=== PATIENT | male | born 1935 | race Caucasian/White ===

== ENCOUNTER 2020-02-12 09:43 | Outpatient (CLI) | payer MEDICARE, SELFPAY ==
--- NOTE | 2020-02-12 09:48 | ECG_ITS ---
Measurements Intervals [place] Rate: 64 P: 60 IN: 222 QRS: 68 QRSD: 92 T: 57 QT: 368 QTc: 382 Interpretive Statements SINUS RHYTHM WITH FIRST DEGREE AV BLOCK ABNORMAL ECG Electronically Signed On 02-12-2020 11:38:02 CDT by Toby Newell D.O.
== END 2020-02-12 09:44 | disposition home or self-care (01) ==
PROVIDERS: PCP Internal Medicine Cardiovascular Disease; Visit Provider Urology
DX: E78.00 Pure hypercholesterolemia, unspecified (principal); I44.0 Atrioventricular block, first degree
CPT/HCPCS: 93005

== ENCOUNTER 2020-02-17 01:23 | Outpatient (CLI) | payer MEDICARE, SELFPAY ==
[2020-02-17 19:35] LABS: SARS-CoV-2 RNA PCR Negative
== END 2020-02-17 01:24 | disposition home or self-care (01) ==
LOC: ANHCOVIDDT 01:23
PROVIDERS: Visit Provider Urology
DX: Z01.812 Encounter for preprocedural laboratory examination (principal); Z11.59 Encounter for screening for other viral diseases
CPT/HCPCS: 87635; C9803; U0003

== ENCOUNTER 2020-02-19 01:41 | Day surgery (SDC) | payer MEDICARE, SELFPAY ==
[2020-02-11 16:06] VITALS: BMI 22.1
--- NOTE | 2020-02-18 09:40 | P.PNAN_ITS ---
Anes - Initial Pre Proc Eval Procedure: Operation Date: 02/19/20 09:30 Proposed Procedures p Cystoscopy, Urethral Dilatation - Agustin Marquez MD Date/Time: 02/18/20 09:40 Surgeon: Agustin Marquez MD Pre Op Diagnosis: Urinary Retention Patient Data Age: 84 Gender: M Height: 1.88 m Weight: 78.05 kg Allergies Allergy/AdvReac Type Severity Reaction Status Date / Time No Known Allergies Allergy Verified 02/11/20 15:49 Home Medications Medication Instructions Recorded Confirmed Type atorvastatin 40 mg PO HS 02/11/20 02/11/20 History calcium carbonate-vitamin D3 1 cap PO BID 02/11/20 02/11/20 History [Calcium 600 with Vitamin D3] calcium polycarbophil [FiberCon] 1,250 mg PO HS 02/11/20 02/11/20 History cholecalciferol (vitamin D3) 25 mcg PO BID 02/11/20 02/11/20 History clopidogrel 75 mg PO DAILY 02/11/20 02/11/20 History glucos sul [id number] 1 cap PO QPM 02/11/20 02/11/20 History [Glucosamine Chondroitin] levothyroxine 100 mcg PO DAILY 02/11/20 02/11/20 History Patient hx anesthesia problems: none Family hx anesthesia problems: none [facility] Past Medical History Medical History (Updated 02/18/20 @ 09:40 by Matt Zhou DO) CAD (coronary artery disease) Hyperlipidemia Hypothyroidism TIA (transient ischemic attack) 08/2019 Surgical History Surgical History (Updated 02/18/20 @ 09:40 by Matt Zhou DO) History of appendectomy History of coronary artery stent placement x1, 2009 History of umbilical hernia repair Social History Social History Smoking status: Never smoker Alcohol intake: current Alcohol use details: 3 DRINKS PER MONTH BEER Living arrangements: alone Spiritual care concerns: No Anes - Eval Final PreProcedure Day of Procedure 02/18/20 09:40 Patient weight: normal Heart: regular rate and rhythm Lungs: clear to auscultation and normal air movement Airway: Mallampati scale class II Neurological: alert and oriented Last oral intake: >/= 8 hours ASA classification: III Emergent: no Anesthetic plan: proceed Anesthesia type and monitoring: general GIVS and standard monitoring Informed Consent: The patient's anesthetic plan and its attendant risks and benefits were discussed with the patient/family/POA. Questions were solicited and answers provided to the satisfaction of the patient/family/POA.
[2020-02-19 07:48] VITALS: BP 127/67; PULSE 62; RESP 20; TEMP 36.2; O2SAT 100
[2020-02-19] MEDS: LACTATED RINGERS 1,000 ML 30 ML IV CONT (08:35)
--- NOTE | 2020-02-19 09:32 | WPDHPUPDATE1 ---
History and Physical Update Update Date/Time: 02/19/20 09:32 History and Physical has been reviewed, including an updated exam of the patient. There are NO changes in the patient's condition. Risks, benefits, and alternatives have been discussed and questions answered. Patient agrees to proceed with procedure.
[2020-02-19] MEDS: ceFAZolin 2 GM/D5W 50 ML 2 GM/50 ML BAG IVPB (09:41)
--- NOTE | 2020-02-19 09:45 | PM.PROC ---
Procedure Note - Detailed Date of procedure: 02/19/20 Pre-op diagnosis: Urinary Retention Post-op diagnosis: other (Bladder neck contracture / bladder stones) Procedure performed: 1. Cystoscopy with urethral dilatation 2. Extraction of bladder stones Description of procedure: Patient is brought to the operative suite where he has prepped and draped in routine sterile fashion while in a dorsal lithotomy position. 2% xylocaine jelly was introduced intraurethrally and systemic sedation is administered per the anesthesia department. Cystoscopy is undertaken with 16 F flexible cystoscope. He has a tightly constricting bladder neck contracture which is dilated from 16-28 F with Geoffrey sounds. His 1 moderate, 2-3 cm, bladder stone was extracted with a grasping forceps. Multiple smaller stones or evacuated with an CUPR evacuator. Scopes were removed and a 18 F urethral catheter was placed to drainage. Urinary efflux was clear at the termination. Anesthesia: GLMA Surgeon: Agustin Marquez MD Estimated blood loss (mL): 0 Drains: Yes (18F Mancuso) Packing: No Pathology: yes Complications: No immediate complications Condition: stable Disposition: PACU
[2020-02-19] MEDS: LIDOCAINE HCL 2% GEL UROJET 10 ML PKG MUCOUS MEM (09:59)
[2020-02-19 10:16] VITALS: BP 118/67; PULSE 53; RESP 14; O2SAT 97
[2020-02-19 10:45] VITALS: BP 127/68; PULSE 52
[2020-02-19 11:15] VITALS: BP 143/67; PULSE 50
[2020-02-19 11:45] VITALS: BP 121/68; PULSE 49
[2020-02-19 12:15] VITALS: BP 132/68; PULSE 56; RESP 18
--- NOTE | 2020-02-19 13:52 | SUR.PHASEII ---
1200; PT AWAKE AND ALERT. DENIES PAIN OR NAUSEA. URINE IN STEWART CLEAR PRABHAKAR. WAITING FOR DR SAUNDERS. 1215; DR SAUNDERS AT BEDSIDE SPEAKING TO PT. INSTRUCTED TO GIVE PT A 10CC SYRINGE TO REMOVE STEWART TOMORROW. 1230; CHANGED TO LEG BAG. PT STATES HE HAS HAD CATHETERS BEFORE AND IS COMFORTABLE REMOVING IT AND USING A LEG BAG. PT STATES HE DOES NOT WANT THE LARGE COLLECTION BAG TO TAKE HOME. MEETS DISCHARGE CRITERIA.
== END 2020-02-19 12:50 | disposition home or self-care (01) ==
PROVIDERS: PCP Internal Medicine Cardiovascular Disease; Visit Provider Urology
PROC: 0T7D8ZZ Dilation of Urethra, Via Natural or Artificial Opening Endoscopic (ICD-10-PCS; CPT 52281; principal; 2020-02-19 09:30)
DX: N32.0 Bladder-neck obstruction (principal); N21.0 Calculus in bladder; I25.10 Atherosclerotic heart disease of native coronary artery without angina pectoris; E78.5 Hyperlipidemia, unspecified; E03.9 Hypothyroidism, unspecified; Z86.73 Personal history of transient ischemic attack (TIA), and cerebral infarction without residual deficits; Z79.02 Long term (current) use of antithrombotics/antiplatelets; Z95.5 Presence of coronary angioplasty implant and graft
CPT/HCPCS: 52310; 82365; 88300; A9270; J0690; J2001; J2704; J3010; J7120

== ENCOUNTER 2020-03-23 02:09 | Outpatient (CLI) | payer MEDICARE, SELFPAY ==
[2020-03-23 17:02] LABS: SARS-CoV-2 RNA PCR Negative
== END 2020-03-23 02:10 | disposition home or self-care (01) ==
LOC: ANHCOVIDDT 02:10
PROVIDERS: Visit Provider Urology
DX: Z01.812 Encounter for preprocedural laboratory examination (principal); Z11.59 Encounter for screening for other viral diseases
CPT/HCPCS: 87635; C9803; U0003

== ENCOUNTER 2020-03-25 00:27 | Day surgery (SDC) | payer MEDICARE, SELFPAY ==
[2020-03-23 12:09] VITALS: BMI 22.1
[2020-03-25] VITALS (8 sets, daily range): BP systolic 115–141; BP diastolic 69–78; PULSE 51–73; RESP 8–18; TEMP 36.7–36.8; O2SAT 98–100
--- NOTE | 2020-03-25 07:11 | WPDHPUPDATE1 ---
History and Physical Update Update Date/Time: 03/25/20 07:11 History and Physical has been reviewed, including an updated exam of the patient. There are NO changes in the patient's condition. Risks, benefits, and alternatives have been discussed and questions answered. Patient agrees to proceed with procedure.
--- NOTE | 2020-03-25 07:55 | WPDANESEPPF ---
Anes - Initial Pre Proc Eval Procedure: Operation Date: 03/25/20 09:30 Proposed Procedures p Optical Internal Urethrotomy - Agustin Marquez MD Date/Time: 03/25/20 07:55 Surgeon: Agustin Marquez MD Pre Op Diagnosis: Urinary Retention Patient Data Age: 84 Gender: M Height: 6 ft 2 in Weight: 78.05 kg Allergies Allergy/AdvReac Type Severity Reaction Status Date / Time No Known Allergies Allergy Verified 03/23/20 11:44 Home Medications Medication Instructions Recorded Confirmed Type Glucosamine Chondroitin 1 cap PO QPM 02/11/20 03/23/20 History atorvastatin 40 mg PO HS 02/11/20 03/23/20 History calcium carbonate-vitamin D3 1 cap PO BID 02/11/20 03/23/20 History [Calcium 600 with Vitamin D3] calcium polycarbophil [FiberCon] 1,250 mg PO HS 02/11/20 03/23/20 History cholecalciferol (vitamin D3) 25 mcg PO BID 02/11/20 03/23/20 History clopidogrel 75 mg PO DAILY 02/11/20 03/23/20 History levothyroxine 100 mcg PO DAILY 02/11/20 03/23/20 History besifloxacin [Besivance] 1 drp RIGHTEYE TID 03/23/20 03/23/20 History carboxymethylcellulose-glycern 1 drp OPHTHALMIC (EYE) TID 03/23/20 03/23/20 History [Refresh Relieva] tamsulosin 0.4 mg PO HS 03/23/20 03/23/20 History Patient hx anesthesia problems: none Family hx anesthesia problems: none PMF[facility] Past Medical History Medical History CAD (coronary artery disease) Hyperlipidemia Hypothyroidism TIA (transient ischemic attack) 08/2019 Surgical History Surgical History History of appendectomy History of coronary artery stent placement [id number] History of umbilical hernia repair Social History Social History Smoking status: Never smoker Alcohol intake: current Alcohol use details: 3 DRINKS PER MONTH BEER Living arrangements: alone Spiritual care concerns: No Anes - Eval Final PreProcedure Day of Procedure 03/25/20 07:55 Patient weight: normal Heart: regular rate and rhythm Lungs: clear to auscultation Airway: Mallampati scale class II Neurological: alert and oriented Last oral intake: >/= 8 hours ASA classification: III Emergent: no Anesthetic plan: proceed Anesthesia type and monitoring: general LMA and standard monitoring Informed Consent: The patient's anesthetic plan and its attendant risks and benefits were discussed with the patient/family/POA. Questions were solicited and answers provided to the satisfaction of the patient/family/POA.
[2020-03-25] MEDS: LACTATED RINGERS 1,000 ML 30 ML IV CONT (08:06)
[2020-03-25] MEDS: ceFAZolin 2 GM/D5W 50 ML 2 GM/50 ML BAG IVPB (08:55)
[2020-03-25] MEDS: LIDOCAINE HCL 2% GEL UROJET 10 ML PKG MUCOUS MEM (09:04)
--- NOTE | 2020-03-25 09:16 | PM.PROC ---
Procedure Note - Detailed Date of procedure: 03/25/20 Pre-op diagnosis: Bladder neck constracture / urethral stricture Post-op diagnosis: same Procedure performed: Optical internal urethrotomy Description of procedure: The patient was brought to the operative suite where he was prepped and draped in a routine sterile fashion while in a dorsal lithotomy position after the uneventful administration of systemic sedation by the anesthesia department. 2% Lidocaine was placed in the urethra and allowed to stand for an appropriate period of time. Cystoscopy was undertaken with a 19F rigid cystoscope. He has a moderately constricting stricture of the mid penile urethra and bladder neck]. The bladder itself was endoscopically normal without foreign body or neoplasm. The bladder mucosa was without hyperemia. There was a single orthotopic ureteral orifice bilaterally with clear reflex of urine. Using the optical urethratome, I incised the strictured urethra and bladder neck at the 12 o'clock position care taken to avoid injury to the membranous urethra. An 18F Mancuso catheter was placed, the bladder was emptied and the patient was taken to the recovery room in good condition. Anesthesia: MAC Surgeon: Agustin Marquez MD Estimated blood loss (mL): 0 Drains: Yes (18F Mancuso catheter) Packing: No Pathology: none sent Complications: No immediate complications Condition: stable Disposition: PACU
--- NOTE | 2020-03-25 10:38 | SUR.PHASEII ---
pt awake and alert. states he is ready to go home
--- NOTE | 2020-03-25 11:18 | SUR.PHASEII ---
1110; PT AWAKE AND ALERT. DRESSED. WAITING FOR RIDE. STATES READY TO GO HOME. MEETS DISCHARGE CRITERIA.
== END 2020-03-25 11:26 | disposition home or self-care (01) ==
PROVIDERS: PCP Internal Medicine Cardiovascular Disease; Visit Provider Urology
PROC: (CPT 52276; principal; 2020-03-25 09:30)
DX: N32.0 Bladder-neck obstruction (principal); N35.911 Unspecified urethral stricture, male, meatal; I25.10 Atherosclerotic heart disease of native coronary artery without angina pectoris; E78.5 Hyperlipidemia, unspecified; E03.9 Hypothyroidism, unspecified; Z86.73 Personal history of transient ischemic attack (TIA), and cerebral infarction without residual deficits; Z79.02 Long term (current) use of antithrombotics/antiplatelets; Z95.5 Presence of coronary angioplasty implant and graft
CPT/HCPCS: 52276; A9270; J0690; J1100; J2405; J2704; J3010; J7120

== ENCOUNTER 2021-05-05 02:51 | Day surgery (SDC) | payer MEDICARE, SELFPAY ==
[2021-05-04 15:39] VITALS: BMI 20.1
[2021-05-05] VITALS (7 sets, daily range): BP systolic 102–123; BP diastolic 68–72; PULSE 51–68; RESP 10–16; TEMP 36.4–36.9; O2SAT 97–100
--- NOTE | 2021-05-05 06:41 | WPDHPUPDATE1 ---
History and Physical Update Update Date/Time: 05/05/21 06:41 History and Physical has been reviewed, including an updated exam of the patient. There are NO changes in the patient's condition. Risks, benefits, and alternatives have been discussed and questions answered. Patient agrees to proceed with procedure.
--- NOTE | 2021-05-05 08:05 | P.PNAN_ITS ---
Anes - Initial Pre Proc Eval Procedure: Operation Date: 05/05/21 10:30 Proposed Procedures p Cystoscopy with Urethral Dilatation - Agustin Marquez MD Date/Time: 05/05/21 08:05 Surgeon: Agustin Marquez MD Pre Op Diagnosis: gross hematuria Patient Data Age: 85 Gender: M Height: 1.88 m Weight: 71.25 kg Allergies Allergy/AdvReac Type Severity Reaction Status Date / Time No Known Allergies Allergy Verified 05/04/21 15:13 Home Medications Medication Instructions Recorded Confirmed Type Glucosamine Chondroitin 1 cap PO QPM 02/11/20 05/04/21 History atorvastatin 40 mg PO HS 02/11/20 05/04/21 History calcium carbonate-vitamin D3 1 cap PO BID 02/11/20 05/04/21 History [Calcium 600 with Vitamin D3] cholecalciferol (vitamin D3) 25 mcg PO BID 02/11/20 05/04/21 History clopidogrel 75 mg PO DAILY 02/11/20 05/04/21 History levothyroxine 100 mcg PO DAILY 02/11/20 05/04/21 History cetirizine [Zyrtec] 10 mg PO DAILY 05/04/21 05/04/21 History Patient hx anesthesia problems: none Family hx anesthesia problems: none Results Review: All pre-operative results and documents have been reviewed as part of the pre-operative evaluation. [facility] Past Medical History Medical History CAD (coronary artery disease) Hyperlipidemia Hypothyroidism TIA (transient ischemic attack) 08/2019 Surgical History Surgical History History of appendectomy History of coronary artery stent placement 2009 History of umbilical hernia repair Social History Social History Smoking status: Never smoker Alcohol intake: current Alcohol use details: 3 DRINKS PER MONTH BEER Living arrangements: alone Spiritual care concerns: No Anes - Eval Final PreProcedure Day of Procedure 05/05/21 08:05 Patient weight: normal Heart: regular rate and rhythm Lungs: clear to auscultation Airway: Mallampati scale class II Neurological: alert and oriented Last oral intake: >/= 8 hours ASA classification: III Emergent: no Anesthetic plan: proceed Anesthesia type and monitoring: general LMA and standard monitoring Results Review: All pre-operative results and documents have been reviewed as part of the pre-operative evaluation. Informed Consent: The patient's anesthetic plan and its attendant risks and benefits were discussed with the patient/family/POA. Questions were solicited and answers provided to the satisfaction of the patient/family/POA.
[2021-05-05] MEDS: LACTATED RINGERS 1,000 ML 30 ML IV CONT (08:10)
[2021-05-05] MEDS: ceFAZolin 2 GM/D5W 50 ML 2 GM/50 ML BAG IVPB (08:27)
[2021-05-05] MEDS: LIDOCAINE HCL 2% GEL UROJET 10 ML PKG MUCOUS MEM (08:34)
--- NOTE | 2021-05-05 08:52 | W.PM.PROC2 ---
Procedure Note - Detailed Date of Procedure 05/05/21 Pre-op Diagnosis Recurrent urethral stricture Post-op Diagnosis same Procedure Performed Cystoscopy, urethral dilatation Surgeon Agustin Marquez MD Anesthesia general Description of Procedure The patient was brought to the operative suite where he was prepped and draped in a routine sterile fashion while in a dorsal lithotomy position after the uneventful induction of a general LMA anesthetic. Cystoscopy was undertaken with a 19F rigid cystoscope. There were no urethral strictures. The prostatic urethral estimated length was 2.0cm. There was moderate obstruction of the prostatic urethra with small median lobe enlargement. The bladder itself was endoscopically normal without foreign body or neoplasm. The bladder mucosa was without hyperemia. There was a single orthotopic ureteral orifice bilaterally with clear efflux of urine. Using the Geoffrey sounds I dilated the urethra and bladder neck from 18F -> 30F. The bladder was emptied and the patient was taken to the recovery room in good condition Drains No Packing No Pathology none sent Complications No immediate complications Condition stable Disposition PACU
--- NOTE | 2021-05-05 10:25 | SUR.PHASEII ---
Vitals are stable. Patient is ready to go and just waiting for ride.
--- NOTE | 2021-05-05 10:47 | SUR.PHASEII ---
RN spoke w/ Dr. Marquez and asked when patient should restart Plavix. He said ok to resume on Sat. 2020. Dr. Marquez wants patient to take Sulfa antibiotic first and when that is gone to take amoxicillin.
== END 2021-05-05 10:35 | disposition home or self-care (01) ==
PROVIDERS: Visit Provider Urology
PROC: 0T7D8ZZ Dilation of Urethra, Via Natural or Artificial Opening Endoscopic (ICD-10-PCS; CPT 52281; principal; 2021-05-05 10:30)
DX: N35.919 Unspecified urethral stricture, male, unspecified site (principal); I25.10 Atherosclerotic heart disease of native coronary artery without angina pectoris; E78.5 Hyperlipidemia, unspecified; E03.9 Hypothyroidism, unspecified; Z86.73 Personal history of transient ischemic attack (TIA), and cerebral infarction without residual deficits; Z79.02 Long term (current) use of antithrombotics/antiplatelets; Z95.5 Presence of coronary angioplasty implant and graft; Z79.899 Other long term (current) drug therapy
CPT/HCPCS: 52281; 87086; 87088; A9270; J0690; J1100; J2405; J2704; J3010; J7120

== ENCOUNTER 2023-11-01 01:27 | Day surgery (SDC) | payer MEDICARE, SELFPAY ==
[2023-10-25 15:41] VITALS: BMI 22.6
--- NOTE | 2023-10-25 16:09 | PC.NURSE ---
Report to the Outpatient Waiting Room, entrance under the green pavilion located off [facility], at time ___7:45AM____ on date __11/01/23 . Planned Procedure Time: __9:45AM . Time changes happen often and if your time is changed the preop area will call you the afternoon before. - You and your visitor will be asked to self-screen and do not enter if you have any COVID symptoms. - A mask is optional within the hospital at this time. Patients may have clear liquids (water, carbonated beverages, clear teas, apple juice) until 3 hours prior to surgery with a maximum of 20 ounces. - No food from midnight until time of surgery. Take the following medications with a SIP of water the morning of surgery: ___LEVOTHYROXINE DO NOT STOP ANY OF YOUR OTHER PRESCRIPTION MEDICATIONS PRIOR TO SURGERY ?EXCEPT THE FOLLOWING Medications to discontinue per physician ____HOLD PLAVIX AND ALL VITAMINS/SUPPLEMENTS 7 DAYS PRE-OP PER DR SAUNDERS Date to take last dose 10/24/23 Please no make-up, nail mongolian, hairspray, perfume, deodorant, or body powder the day of surgery. No jewelry (including any body piercings) or valuables the day of surgery, leave them at home. Please take a shower or bath the night before, or the morning of, surgery with an antibacterial soap. Wear comfortable, loose fitting clothing. Children are encouraged to wear pajamas. - Jewelry must be removed prior to entering the operating room. Rings and piercings that are not removed may be cut off. - The hospital will not accept responsibility for valuables. - Please leave all valuables, including medications, at home the day of surgery. If you are going home after surgery, a licensed regional truck driver must drive you home. - NO public transportation without another adult if you receive anesthesia. - We recommend that an adult stay with you for 24 hours following discharge. - We also recommend that you do not drive, make important decision, drink alcoholic beverages, or take any drugs that were not prescribed by your health care provider for at least 24 hours after your discharge time. For Pediatric surgeries, we recommend two adults accompany the child home. Follow any additional instructions given to you from your surgeon. If you or anyone in your household have experienced Covid symptoms in the past week, please notify your surgeon or the nurse liaison at the phone number below for possible testing. Telephone instructions given to ____PATIENT and asked if any additional questions and then verbalized understanding. Patient advised to call surgeon office or pre surgery nurse liaison [phone] if any additional questions.
--- NOTE | ~2023-11-01 | XR_ITS ---
EXAMINATION: XR urethrocystogram DATE: 11/01/2023 9:50 CDT INDICATION: RETROGRADE URETHROGRAM . TECHNIQUE: 2 cine clips of 97 and 43 images of the pelvis were obtained during retrograde urethrocyst ogram, performed by Agustin Marquez MD. I was not present during the procedure. Fluoroscopy exposu re time was 27 seconds. Air Kerma 5.82 mGy. DAP [id number] mGym2. COMPARISON: None FINDINGS/IMPRESSION: Fluoroscopic documentation of retrograde urethrocystogram. Please refer to the operative note for com plete procedural details . Reviewed, dictated and finalized at location K.
--- NOTE | 2023-11-01 06:27 | WPDHPUPDATE1 ---
History and Physical Update Update Date/Time: 11/01/23 06:27 History and Physical has been reviewed, including an updated exam of the patient. There are NO changes in the patient's condition. Risks, benefits, and alternatives have been discussed and questions answered. Patient agrees to proceed with procedure.
[2023-11-01 08:12] VITALS: BP 136/82; PULSE 55; RESP 16; TEMP 36.3; O2SAT 99
[2023-11-01] MEDS: LACTATED RINGERS 1,000 ML 30 ML IV CONT (08:14)
--- NOTE | 2023-11-01 09:22 | WPDANESEPPF ---
Anes - Initial Pre Proc Eval Procedure: Operation Date: 11/01/23 09:45 Proposed Procedures p Cystoscopy, Urethral Dilatation, Possible Retrograde Urethrogram - Agustin Marquez MD Date/Time: 11/01/23 09:22 Surgeon: Agustin Marquez MD Pre Op Diagnosis: recurrent bovis urethral stricture Patient Data Age: 88 Gender: M Height: 1.85 m Weight: 79 kg Last Vital Signs Temp 97.3 F L 11/01/23 08:12 Pulse 55 L 11/01/23 08:12 Resp 16 11/01/23 08:12 BP 136/82 11/01/23 08:12 Pulse Ox 99 11/01/23 08:12 O2 Del Method Room Air 11/01/23 08:12 Allergies Allergy/AdvReac Type Severity Reaction Status Date / Time No Known Allergies Allergy Verified 11/01/23 07:55 Home Medications Medication Instructions Recorded Confirmed Type atorvastatin 40 mg tablet 40 mg PO HS 02/11/20 10/25/23 History calcium carbonate 600 mg-vitamin 1 cap PO BID 02/11/20 10/25/23 History D3 12.5 mcg (500 unit) capsule (Calcium 600 with Vitamin D3) cholecalciferol (vitamin D3) 25 25 mcg PO BID 02/11/20 10/25/23 History mcg (1,000 unit) tablet clopidogrel 75 mg tablet 75 mg PO DAILY 02/11/20 10/25/23 History glucosamine sulf dipot 1 cap PO QPM 02/11/20 10/25/23 History chlr,msm,chond 550 mg-C 30 mg-laz 1 mg capsule (Glucosamine Chondroitin) levothyroxine 100 mcg tablet 100 mcg PO DAILY 02/11/20 10/25/23 History Saccharomyces boulardii 250 mg 250 mg PO DAILY 10/25/23 10/25/23 History oral powder packet cephalexin 500 mg capsule 500 mg PO DAILY PRN UTI 10/25/23 10/25/23 History finasteride 5 mg tablet 5 mg PO DAILY 10/25/23 10/25/23 History omega 0-sre-tfe-fish oil 1,000 mg 1 cap PO DAILY 10/25/23 10/25/23 History (120 mg-180 mg) capsule (Fish Oil) polyethylene glycol 3350 17 gram 17 g PO DAILY PRN Constipation 10/25/23 10/25/23 History oral powder packet (Miralax) tamsulosin 0.4 mg capsule 0.4 mg PO DAILY 10/25/23 10/25/23 History vitamin B complex 1 cap PO DAILY 10/25/23 10/25/23 History Patient hx anesthesia problems: none Family hx anesthesia problems: none Results Review: All pre-operative results and documents have been reviewed as part of the pre-operative evaluation. [facility] Past Medical History Medical History CAD (coronary artery disease) Hyperlipidemia Hypothyroidism TIA (transient ischemic attack) 08/2019 Surgical History Surgical History History of appendectomy History of coronary artery stent placement 2009 History of umbilical hernia repair Social History Social History Smoking status: Never smoker Alcohol intake: current Alcohol use details: 3 DRINKS PER MONTH BEER Living arrangements: alone Spiritual care concerns: No Anes - Eval Final PreProcedure Day of Procedure 11/01/23 09:22 Patient weight: normal Heart: regular rate and rhythm Lungs: clear to auscultation Airway: Mallampati scale and special considerations (Missing many upper and lower teeth, none loose per pt. ) Neurological: alert and oriented Last oral intake: >/= 8 hours ASA classification: III Emergent: no Anesthetic plan: proceed Anesthesia type and monitoring: general LMA and standard monitoring Results Review: All pre-operative results and documents have been reviewed as part of the pre-operative evaluation. Pt had PTCA 2009, f/u w PCP and stable cardiac status. Active at gym w wts 2 x weekly, no cp or sob w exertion. Informed Consent: The patient's anesthetic plan and its attendant risks and benefits were discussed with the patient/family/POA. Questions were solicited and answers provided to the satisfaction of the patient/family/POA.
[2023-11-01] MEDS: ceFAZolin 2 GM/D5W 50 ML 2 GM/50 ML BAG IVPB (09:43)
--- NOTE | 2023-11-01 10:08 | W.PM.PROC2 ---
Procedure Note - Detailed Date of Procedure 11/01/23 Pre-op Diagnosis Recurrent bulbous urethral stricture Post-op Diagnosis Same Procedure Performed Cystoscopy, retrograde urethrogram, urethral dilatation Surgeon Agustin Marquez MD Anesthesia General Description of Procedure Patient brought to the operative suite was prepped and draped in routine sterile fashion while in dorsal lithotomy position after the uneventful induction of a general LMA anesthetic. He was positioned in a somewhat oblique position in preparation for a retrograde urethrogram. Using a 10 F Mancuso catheter in the fossa navicularis I did perform a retrograde urethrogram. There appears to be a fairly short narrowing in the bulbous urethra and a 2nd 1 at the bladder neck. Did not appear to be any long dense strictures. Cystoscopy with a 19 F rigid cystoscope confirm these findings. He has minimal prostatic hyperplasia. The bladder shows some debris in the dependent portion but no identifiable stones. There was no intravesical neoplasm. Using Geoffrey sounds I dilated from 18-30 F. A 20 F urethral catheter was placed to drainage. I plan to leave the catheter for 4 days. Drains Yes Packing No Pathology None sent
[2023-11-01 10:12] VITALS: BP 102/70; PULSE 65; O2SAT 97
[2023-11-01 10:30] VITALS: BP 118/85; PULSE 63
[2023-11-01 11:00] VITALS: BP 129/71; PULSE 51
== END 2023-11-01 11:28 | disposition home or self-care (01) ==
PROVIDERS: Visit Provider Urology
PROC: 0T7D8ZZ Dilation of Urethra, Via Natural or Artificial Opening Endoscopic (ICD-10-PCS; CPT 52281; principal; 2023-11-01 09:45)
DX: N35.912 Unspecified bulbous urethral stricture, male (principal); I25.10 Atherosclerotic heart disease of native coronary artery without angina pectoris; E78.5 Hyperlipidemia, unspecified; E03.9 Hypothyroidism, unspecified; Z86.73 Personal history of transient ischemic attack (TIA), and cerebral infarction without residual deficits
CPT/HCPCS: 52281; 51610; 74450; J0690; J2405; J2704; J3010; J7120; Q9966